=== PATIENT | female | born 1995 | race Caucasian/White ===

== ENCOUNTER 2017-01-25 05:51 | Emergency (ER) | payer OTHER ==
[~2017-01-25] VITALS: Ht 175.3 cm; Wt 59.0 kg
[2017-01-25] MEDS ORDERED: PREDNISONE50 MG PO (12:35)
[2017-01-25] MEDS ORDERED: EPIPEN 2-P0.3 MG/0.3 IM (12:35)
[2017-01-25 14:22] VITALS: BP 103/61
== END 2017-01-25 14:24 | disposition home or self-care (01) ==
LOC: ER 05:51
DX: T78.01XA Anaphylactic reaction due to peanuts, initial encounter (principal); F17.210 Nicotine dependence, cigarettes, uncomplicated